=== PATIENT | female | born 1970 | race Caucasian/White ===

== ENCOUNTER 2022-01-02 13:48 | Outpatient (CLI) | payer OTHER, SELFPAY ==
--- NOTE | 2022-01-02 14:00 | CRLHL7_ITS ---
For Patients: As a result of the Century Cures Act, medical imaging exams and procedure reports are released immediately into your electronic medical record. You may view this report before your referring provider. If you have questions, please contact your health care provider. Indication: Sinus drainage. Left ear pain. Technique: CT of the sinuses performed without IV contrast Comparison: None relevant available Findings: Frontal sinuses: Mild right-sided mucosal disease. Ethmoid sinuses: Mild mucosal disease. Maxillary sinuses: Moderate right mucosal disease with air-fluid level. Mild left sinus mucous retention cyst/polyp. Sphenoid sinuses: Moderate right lateral mucosal disease. Occlusion of the right ostiomeatal unit. Left ostiomeatal unit demonstrates mild thickening without complete occlusion. The frontoethmoidal recesses appear occluded. Right sphenoethmoidal recess is occluded. Left sphenoid ethmoidal recess demonstrates mild thickening. Nasal Cavity: Mild rightward nasal septal deviation. There is no aggressive periosteal reaction or osseous erosion. No effacement of the fat planes. Orbits appear intact. Clinically opacified left mastoid, with portions of the epitympanum. Impression: 1. Moderate right maxillary sinus mucosal disease with air-fluid level. Correlate for acute sinusitis. 2. Moderate right sphenoid, with mild remaining paranasal sinus mucosal disease. 3. Occluded right ostiomeatal unit, sphenoethmoidal and bilateral frontoethmoidal recesses 4. Completely opacified left mastoid and epitympanum. Correlate for otomastoiditis. Please note that all CT scans at this facility use dose modulation, iterative reconstruction, and/or weight-based dosing when appropriate to reduce radiation dose to as low as reasonably achievable. Dictated by Tim Chapman MD @ 01/02/2022 4:50:50 PM (Electronically Signed)
== END 2022-01-02 13:49 | disposition home or self-care (01) ==
LOC: CT 13:49
PROVIDERS: PCP Family Medicine; Visit Provider Otolaryngology
DX: J32.9 Chronic sinusitis, unspecified (principal); J32.0 Chronic maxillary sinusitis; H92.02 Otalgia, left ear; J32.3 Chronic sphenoidal sinusitis
CPT/HCPCS: 70486

== ENCOUNTER 2022-01-27 09:43 | Day surgery (SDC) | payer OTHER, SELFPAY ==
[2022-01-27] VITALS (18 sets, daily range): BP systolic 104–130; BP diastolic 66–86; PULSE 66–92; RESP 15–22; TEMP 36.2–36.7; O2SAT 93–97; BMI 27.0
[2022-01-27] MEDS: SODIUM CHLORIDE 0.9 % (FLUSH) 10 ML SYRINGE IVF (10:05)
[2022-01-27] MEDS: LACTATED RINGERS 1000 ML 1,000 ML 100 ML IV (10:05)
[2022-01-27 10:35] LABS: SARS PCR* Negative SARS-CoV-2 (Negative)
--- NOTE | 2022-01-27 11:18 | W.ANESCHARGE ---
Anesthesia Charges Start Date/Time Anesthesia Start Date: 01/27/22 Anesthesia Start Time: 10:26 Stop Date/Time Anesthesia Stop Date: 01/27/22 Anesthesia Stop Time: 11:55 Summary Emergency: No
[2022-01-27] MEDS: AYR SALINE NASAL GEL 1 APPLIC NOSTRIL-B (11:22)
[2022-01-27] MEDS: MUPIROCIN 1 GM PACKET 1 APPLIC TOPICAL (11:22)
[2022-01-27] MEDS: BUPIVACAINE 0.5%/EPINEPHRINE 0.9 MG (30.9 ML) INJECTION (11:27)
--- NOTE | 2022-01-27 11:50 | W.PM.ENTPROC ---
Procedure Note Date of procedure: 01/27/22 Procedure: Preop diagnosis chronic tonsillitis adenotonsillar hypertrophy deviated septum nasal obstruction inferior turbinate hypertrophy left, right maxillary and ethmoid chronic rhinosinusitis, left at chronic ethmoid sinusitis Postoperative diagnosis same Procedure is adenotonsillectomy, nasal septoplasty, submucous partial resection inferior turbinates, endoscopic bilateral complete ethmoidectomies, endoscopic right maxillary antrostomy with tissue removal. Under general trach anesthesia patient was prepped draped usual fashion. The McIvor mouth gag was inserted the tongue retracted forward. Tonsils were massively enlarged and quite scarred in. The removed a combination of needlepoint and suction cautery as well as Coblation. The adenoid pad was removed with suction cautery using indirect visualization with a laryngeal mirror. After regarding and gloving attention was turned to the nose. The nose was injected and decongested. A right hemitransfixion incision was made left anterior and posterior tunnels were created a vertical incision made to the cartilage and a right posterior tunnel created. The posterior deflected portions of septal bone and cartilage were resected and a large piece of bone trimmed return to the posterior intraseptal space. The hemitransfixion was then closed with 2 4-0 chromic sutures. A stab incision was made in the anterior head of the left inferior turbinate a tunnel created with a [place] dissector. Dipika bone was outfractured and a conservative anterior submucous resection was performed. The Coblation was used for hemostasis and to cauterize intramurally along the inferior 10%. Need the left ethmoid bulla was taken down with an ethmoid forceps and this and a complete left complete ethmoidectomy performed with an ethmoid forceps removing a moderate amount of polypoid material. This was repeated on the right side there was a large her amount of polyp tissue on the right than on the left. The inferior quarter of the uncinate process was taken down the natural ostium to maxillary sinus exposed. It was occluded by polypoid tissue which was removed with an ethmoid forceps. This created a 9 mm antrostomy. There was mucopurulent fluid in the sinus that was aspirated and thickened mucosa is removed from near the opening along the floor of the sinus. All specimens were sent to pathology. Merocel pack was coated in Bactroban and placed in the middle meatus on each side. Silastic stents were secured is side the septum with 3-0 nylon after 1st closing the mid transfixion with 2 4-0 chromic sutures. The patient procedure well was taken recovery in satisfactory condition. Prior to extubation I did check the tonsil fossa for bleeding and there was minimal oozing that was cauterized on the left side. Blood loss during procedure was less than 50 mL. Complications none Surgeon: Vu Sanchez MD
--- NOTE | 2022-01-27 12:03 | W.ANESCHARGE ---
Anesthesia Charges Start Date/Time Anesthesia Start Date: 01/27/22 Anesthesia Start Time: 10:26 Stop Date/Time Anesthesia Stop Date: 01/27/22 Anesthesia Stop Time: 11:55 Summary Emergency: No
[2022-01-27] MEDS: OXYCODONE 1 MG/ML ORAL SOLN PO ×2 (13:54→17:44)
[2022-01-27] MEDS: IBUPROFEN 100 MG/5 ML SUSP 200 MG PO (17:13)
--- NOTE | 2022-01-27 19:46 | PC.NURSE ---
VSS AND AFEBRILE. PAIN CONTROLLED WITH OXYCODONE AND IBUPROFEN. PATIENT TOLERATED SOFT DIET WITH NO C/O N/V. UP WITH SBA IN HALLWAY AND AMBULATING WELL. DENIES FEELING DIZZY OR LIGHTHEADED. PATIENT REQUESTING TO DISCHARGE TONIGHT. DR. CHAUHAN APPROVED DISCHARGE. SL DC'D. REVIEWED DC INSTRUCTIONS WITH PATIENT AND HER . QUESTIONS ANSWERED AND PATIENT DC'D HOME VIA .
== END 2022-01-27 19:45 | disposition home or self-care (01) ==
PROVIDERS: PCP Physician Assistant; Visit Provider Otolaryngology
PROC: (CPT 31231; principal; 2022-01-27 10:15)
PROC: (CPT 42821; 2022-01-27 10:15)
DX: J35.01 Chronic tonsillitis (principal); J35.3 Hypertrophy of tonsils with hypertrophy of adenoids; J34.2 Deviated nasal septum; J34.3 Hypertrophy of nasal turbinates; J32.2 Chronic ethmoidal sinusitis; J32.0 Chronic maxillary sinusitis; J34.89 Other specified disorders of nose and nasal sinuses
CPT/HCPCS: 42821; 30520; 30140; 31255; 31267; 00160; 00170; 87635; 88304; 88305; A9270; J0131; J0330; J1100; J2250; J2405; J2704; J3010; J7120

== ENCOUNTER 2023-04-17 02:09 | Emergency (ER) | payer OTHER, SELFPAY ==
[2023-04-17 02:20] VITALS: BP 168/113; PULSE 105; RESP 16; TEMP 36.9; O2SAT 95; BMI 27.4
--- NOTE | 2023-04-17 03:01 | ED.GENADULT ---
HPI - General Adult General Chief complaint: Unspecified Complaint, Adult Stated complaint: Trouble sleeping Time Seen by Provider: 04/17/23 02:32 Source: patient Mode of arrival: ambulatory Limitations: no limitations History of Present Illness HPI narrative: 52-year-old female presents to the emergency department for evaluation of insomnia for the last 3 nights. She reports that she had a scheduled date night with her and they were not interacting well. She thought she had been clear that they were going to initiate relations that night. It sounds as though they were swab [place] most of the night and he declined her advances which caused her significant distress. She reports that she was crying and he did not attempt to comfort her. She reports that she has been bringing up strange minor events from their marriage that seem more meaningful to her now, clearly showing signs of rumination. There does not seem to be any non factual or imaginary aspects to these extensive stories she tells me. She says it is difficult fall sleep, she keep 3 playing the events with her and feels stressed out. She tried taking Benadryl, even up to 5 doses today with no significant improvement in her insomnia. She has not tried melatonin. She reports that she has had difficulty sleeping in the past but has no history of bipolar disorder. She reports poor response from amitriptyline and mirtazapine in the past. She does take 100 mg of sertraline daily. She denies use of other sleep aids. It does not sound as though she has been previously prescribed trazodone but she cannot be clear. Was really important to know is that she recently started an online prescription weight loss program. She has been prescribed a combination of naltrexone and topiramate which I do not have concerns with but she has also started extended release buproprion. Denies hallucinations. Denies suicidal or homicidal thoughts. She actually feels like the weight loss medicines have been helping significantly with food chatter and she had not previously connected that this may be part of her increased stress or insomnia. Denies chest pain, neurological changes, headache, trauma or injury or any other emergent type symptoms for her visit here in the middle of the night. She does have an upcoming therapy appointment tomorrow and a primary care follow-up on Sunday specifically to discuss these concerns. Past medical history notable for depression and anxiety, rheumatoid arthritis, as well as chronic headaches. Home medications notable for estrogen, progesterone, methotrexate, Enbrel, sertraline and sumatriptan. She states that she is not taking the mirtazapine that is on her medicine list. Denies recent surgeries. Nonsmoker, denies illicit drug use. ROS notable for the insomnia and increased stress as stated above but otherwise denies times 12 systems. Related Data Home Medications Medication Instructions Recorded Confirmed etanercept 25 mg/0.5 mL (0.5 mL) 50 mg subcut QWEEK 12/02/21 03/30/23 subcutaneous syringe (Enbrel) cholecalciferol (vitamin D3) 50 2,000 unit PO DAILY 01/26/22 03/30/23 mcg (2,000 unit) capsule cyanocobalamin (vitamin B-12) 1,000 mcg PO DAILY 01/26/22 03/30/23 1,000 mcg capsule methotrexate sodium 2.5 mg tablet 15 mg PO QWEEK 01/26/22 03/30/23 mirtazapine 15 mg tablet (Remeron) 7.5 mg PO DAILY 01/26/22 03/30/23 multivitamin (Daily Multi-Vitamin 1 tab PO DAILY 01/26/22 03/30/23 tablet) omega-3 fatty acids 500 mg PO BID 01/26/22 03/30/23 sumatriptan succinate 100 mg tablet 100 - 200 mg PO Q2-4H PRN 01/26/22 03/30/23 conj estrogen-medroxyprogesterone 1 tab PO DAILY 11/26/22 03/30/23 0.3 mg-1.5 mg tablet (Prempro) sertraline 100 mg tablet 100 mg PO DAILY 11/26/22 03/30/23 Allergies Allergy/AdvReac Type Severity Reaction Status Date / Time No Known Drug Allergies Allergy Verified 03/30/23 14:28 [facility] Medical History Obstructive sleep apnea ?G47.33 - Obstructive sleep apnea (adult) (pediatric) (ICD-10) Hot flashes due to menopause ?N95.1 - Menopausal and female climacteric states (ICD-10) Generalized anxiety disorder with panic attacks ?F41.1 - Generalized anxiety disorder (ICD-10) ?F41.0 - Panic disorder [episodic paroxysmal anxiety] (ICD-10) Migraine ?G43.909 - Migraine, unspecified, not intractable, without status migrainosus (ICD-10) 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 - Acute rheumatic endocarditis (ICD-10) Surgical History Hx of bilateral breast reduction surgery ?Z98.890 - Other specified postprocedural states (ICD-10) Social History Smoking Status: Never smoker How often do you have a drink containing alcohol: monthly or less How many standard drinks containing alcohol do you have on a typical day: 1 or 2 How often do you have six or more drinks on one occasion: Never AUDIT-C Alcohol total score: 1 Non-prescribed substance use: denies use Caffeine: Yes Are you using contraception or practicing any form of control: No Exam Const: Vital Signs, click to edit/add: Vital Signs - 24 hr 04/17/23 02:20 04/17/23 03:12 Temperature 98.5 F Pulse Rate [Pulse Oximeter] 105 H 100 Respiratory Rate 16 16 Blood Pressure [Ri ght Upper Arm] 168/113 H 148/104 H Pulse Oximetry 95 Oxygen Delivery Me thod Room Air Documenting provider has reviewed patient's vital signs: yes Common normals: alert Other: Mildly anxious but thought process logical and well-organized. Well-nourished and well-hydrated appearing, clean with normal grooming. Maintains good eye contact. HENMT: Common normals: normocephalic Head and scalp: normocephalic Face and sinus: normal facial exam Other: Lips acyanotic and moist. Eye: Common normals: conjunctivae normal General eye: normal appearance of both eyes Conjunctiva: conjunctiva(e) normal Neck & C-Spine: General: normal visual inspection Resp: Common normals: normal respiratory effort, no use of accessory muscles and clear to auscultation bilaterally Effort & inspection: able to speak in complete sentences Auscultation: clear to auscultation bilaterally Cardio: Common normals: regular rate, regular rhythm, S1 normal heart sound, S2 normal heart sound and no murmurs Rate: regular rate Rhythm: regular rhythm Heart sounds: S1 normal and S2 normal GI: Common normals: Normal to inspection, nondistended, normoactive bowel sounds present, soft to palpation and no hepatosplenomegaly Palpation: soft and no hepatosplenomegaly Extremity: Common normals: normal to inspection Neuro: Sensorium/orientation: alert Speech: speech normal Motor exam: no tremor noted and no movement abnormalities noted Psych: Common normals: speech normal Speech: normal speech Thought content: normal thought content Attention/concentration: attention grossly intact Memory/cognition: memory grossly intact Insight: fair Judgement: fair Other: Maintains eye contact. No psychosis. Mildly anxious, not unexpected. Thought process is logical. No signs of delusions. Does perseverate and ruminate, thoughts are a little circumstantial. Mentation seems very appropriate for decision making with no signs of impairment. Skin: Common normals: no rashes or lesions noted General skin exam: no rashes or lesions noted Course Course ED Course: Counseled patient on my thoughts and findings. I do think that it would be appropriate in combined with some marital stressors is the reason for her worsening insomnia. Although, it does sound as though she has struggled with insomnia long-term. I do not think that this was appropriately considered when she was prescribed bupropion online. I think the bupropion is also contributing to some rumination and possibly some irritability that she may not have been aware of and caused the increased marital stressors. I recommended that she discontinue the bupropion. She will keep her follow-up appointment with her primary care provider on Sunday and her counseling appointment for tomorrow. I have given her a very limited supply of 0.5 mg lorazepam tablets. She may used half to 1 mg at bedtime nightly for the next couple of nights. This should be a sufficient supply as it will allow time for the bupropion to get out of her system. It is not intended for long-term use and I would not recommend refills. She is also counseled on use of melatonin 10 mg at bedtime nightly for the next 7 days. We briefly discussed signs and symptoms of melissa and hypomania and other alarm symptoms that would warrant ED presentation and she verbalizes understanding and agreement. These were also provided in writing. She may continue taking her topiramate and naltrexone for weight loss if she wishes and should continue on her sertraline as well. 27 minutes were spent [id number], much through counseling with this patient. Rationale for higher level visit. Vital Signs Vital signs: Initial Vital Signs Temperature 98.5 F 04/17/23 02:20 Temperature Source Temporal Artery Scan 04/17/23 02:20 Pulse Rate 105 H 04/17/23 02:20 Respiratory Rate 16 04/17/23 02:20 Blood Pressure 168/113 H 04/17/23 02:20 Blood Pressure Mean 131 H 04/17/23 02:20 Blood Pressure Position Sitting 04/17/23 02:20 Pulse Oximetry 95 04/17/23 02:20 Oxygen Delivery Method Room Air 04/17/23 02:20 Vital Signs Temperature 98.5 F 04/17/23 02:20 Pulse Rate 105 H 04/17/23 02:20 Respiratory Rate 16 04/17/23 02:20 Blood Pressure 168/113 H 04/17/23 02:20 Pulse Oximetry 95 04/17/23 02:20 Oxygen Delivery Method Room Air 04/17/23 02:20 Temperature 98.5 F 04/17/23 02:20 Pulse Rate 100 04/17/23 03:12 Respiratory Rate 16 04/17/23 03:12 Blood Pressure 148/104 H 04/17/23 03:12 Pulse Oximetry 95 04/17/23 02:20 Oxygen Delivery Method Room Air 04/17/23 02:20 Medical Decision Making MDM Narrative Medical decision making narrative: Insomnia related to stressors and bupropion without signs of psychosis, suicidality or hypomania. Medically stable, no additional labs or studies recommended in the ED today. Has appropriate follow-up already scheduled. Discharge Plan Discharge Clinical Impression: Insomnia, Medication side effects Patient Disposition: Home, Self-Care Condition: Stable Instructions: Insomnia (ED) Additional Instructions: As we discussed, I do think that the appropriate you have begun taking is contributing significantly to your insomnia. I certainly do think the recent stressors in your marriage are a part of this also but I would think that the effects of the medication cannot be ignored. This is a medication that is known to cause significant anxiety, insomnia. I do think that it may also be contributing to some rumination in your case. I would like for you to stop taking the bupropion. Because you have been on it such a short amount of time, you may stop it abruptly. It is okay for you to continue using your topiramate and also the naltrexone. You may continue taking your sertraline as prescribed as well. The bupropion will take a few days to get out of your system. Please be aware that this could be causing some additional irritability or personality changes that you may not have noticed that may be playing a part in your marital stressors and your reactions as well. I recommend that you take melatonin 10 mg at bedtime nightly for the next week. You may use this long-term if needed. Take 15 minutes before bedtime. No caffeine within 6 hours of bedtime. Discontinue the Benadryl as I do not think this will be helpful for you. I have given you a small prescription for lorazepam. Take half to 1 mg at bedtime as needed for sleep just for the next couple of nights. I do not anticipate additional refills of this medication. It is not intended for long-term use. If your symptoms are not improving following discontinuation of the bupropion, your primary care provider should consider trazodone or another option that is better intended for long-term use. I do not think the mirtazapine would be a good fit to try again, as this is known to cause significant weight gain. The be appropriate in is currently being prescribed in the most extended release version. You may be able to tolerate the S our version taken only in the morning with less insomnia. This can be considered by your primary care physician if needed. As we discussed, sometimes bupropion can trigger episodes of hypomania in susceptible people. I am not detecting signs of this today. But if you continue to have worsening symptoms, any signs of psychosis or significant changes in personality, please seek additional care. If you have serious suicidal or homicidal thoughts, please return to the emergency department. Keep your counseling appointment for tomorrow an your primary care follow-up for Sunday as scheduled. Please brings paperwork with you to the appointment as it will help your primary care provider understand my rationale in treatment more quickly. Activity Level: No Restrictions Prescriptions: No Action Enbrel 25 mg/0.5 mL (0.5) syringe 50 mg subcut QWEEK Prempro 0.3-1.5 mg tablet 1 tab PO DAILY sertraline 100 mg tablet 100 mg PO DAILY cholecalciferol (vitamin D3) 50 mcg (2,000 unit) capsule 2,000 unit PO DAILY cyanocobalamin (vitamin B-12) 1,000 mcg capsule 1,000 mcg PO DAILY methotrexate sodium 2.5 mg tablet 15 mg PO QWEEK Patient Comments: TAKE 6 TABLETS BY MOUTH ONE TIME PER WEEK mirtazapine [Remeron] 15 mg tablet 7.5 mg PO DAILY multivitamin [Daily Multi-Vitamin] Tablet 1 tab PO DAILY omega-3 fatty acids Capsule 500 mg PO BID sumatriptan succinate 100 mg tablet 100 - 200 mg PO Q2-4H PRN Rx Instructions: do not exceed 2 doses per 24 hrs Follow Up/Referrals: Shayla Guardado PA-C [Primary Care Provider] - Stand Alone Forms: [facility] Info Instructions
[2023-04-17 03:12] VITALS: BP 148/104; PULSE 100; RESP 16
== END 2023-04-17 03:14 | disposition home or self-care (01) ==
LOC: ED 03:02
PROVIDERS: Emergency Provider Family Medicine; PCP Student in an Organized Health Care Education/Training Program
DX: G47.00 Insomnia, unspecified (principal)
CPT/HCPCS: 99283